=== PATIENT | female | born 1985 | race Caucasian/White ===

== ENCOUNTER 2018-10-26 21:48 | Emergency (ER) | payer SELFPAY, MEDICAID ==
[2018-10-27] MEDS: FAMOTIDINE 20 MG TAB PO (02:02)
[2018-10-27] MEDS: ONDANSETRON (ODT) 4 MG TAB ODT (02:02)
[2018-10-27 02:05] LABS: ADD MAN DIFF? NO
[2018-10-27 02:08] LABS: BASOPHILS % 0.2 % (0.0-2.0); EOSINOPHILS # 0.1 10^3/ul (0.0-0.5); EOSINOPHILS % 0.9 % (0.0-7.0); HEMATOCRIT 34.8 % (37.0-47.0); HEMOGLOBIN 11.5 g/dl (12.0-16.0); LYMPHOCYTES # 2.2 10^3/ul (0.8-2.9); LYMPHOCYTES % 22.8 % (15.0-51.0); MEAN CORPUSCULAR HEMOGLOBIN 29.2 pg (29.0-33.0); MEAN CORPUSCULAR VOLUME 88.3 fl (82.0-101.0); MEAN PLATELET VOLUME 11.4 fl (7.4-10.4); MONOCYTE # 0.6 10^3/ul (0.3-0.9); MONOCYTES % 6.2 % (0.0-11.0); NEUTROPHIL # 6.8 10^3/ul (1.6-7.5); NEUTROPHILS % 69.7 % (39.0-77.0); PLATELET COUNT 274 10^3/UL (140-415); RED BLOOD COUNT 3.94 10^6/ul (4.20-5.40); RED CELL DISTRIBUTION WIDTH 13.6 % (11.5-14.5)
[2018-10-27 02:08] LABS: WHITE BLOOD COUNT 9.8 10^3/ul (4.8-10.8)
[2018-10-27] MEDS: ONDANSETRON 4 MG INJ IM (02:20)
[2018-10-27 02:27] LABS: ALANINE AMINOTRANSFERASE 10 IU/L (13-69); ALBUMIN 3.9 g/dl (3.3-4.9); ALBUMIN/GLOBULIN RATIO 1.05; ALKALINE PHOSPHATASE 70 IU/L (42-121); ANION GAP 10 (5-13); ASPARTATE AMINO TRANSFERASE 19 IU/L (15-46); BILIRUBIN,INDIRECT 0.1 mg/dl (0-1.1); BILIRUBIN,TOTAL 0.1 mg/dl (0.2-1.3); BLOOD UREA NITROGEN 6 mg/dl (7-20); CALCIUM 9.4 mg/dl (8.4-10.2); CARBON DIOXIDE 24 mmol/L (21-31); CHLORIDE 106 mmol/L (97-110); Estimated GFR > 60 mL/min (>60); GLUCOSE 104 mg/dl (70-220); POTASSIUM 3.6 mmol/L (3.5-5.1); SODIUM 140 mmol/L (135-144); TOTAL PROTEIN 7.6 g/dl (6.1-8.1)
[2018-10-27 02:33] LABS: ADD UMIC YES; UR ASCORBIC ACID NEGATIVE (NEGATIVE); UR BACTERIA FEW /HPF (NONE SEEN); UR BILIRUBIN (Dip) NEGATIVE (NEGATIVE); UR BLOOD (Dip) NEGATIVE (NEGATIVE); UR CLARITY SLIGHTLY CLOUDY (CLEAR); UR COLOR YELLOW (YELLOW); UR GLUCOSE (Dip) NEGATIVE (NEGATIVE); UR KETONES (Dip) 1+ mg/dL (NEGATIVE); UR LEUKOCYTE ESTERASE (Dip) TRACE Leu/ul (NEGATIVE); UR MUCUS FEW /HPF (NONE SEEN); UR NITRITE (Dip) NEGATIVE (NEGATIVE); UR RBC 2 /HPF (0-5); UR SPECIFIC GRAVITY (Dip) 1.019 (1.003-1.030); UR SQUAMOUS EPITHELIAL CELL FEW /HPF (FEW); UR TOTAL PROTEIN (Dip) NEGATIVE (NEGATIVE); UR UROBILINOGEN (Dip) NEGATIVE (NEGATIVE); UR WBC 4 /HPF (0-5)
== END 2018-10-27 04:12 | disposition home or self-care (01) ==
LOC: FTE 21:48
DX: O99.612 Diseases of the digestive system complicating pregnancy, second trimester (principal); K80.50 Calculus of bile duct without cholangitis or cholecystitis without obstruction; O20.9 Hemorrhage in early pregnancy, unspecified; R10.2 Pelvic and perineal pain; Z3A.18 18 weeks gestation of pregnancy
CPT/HCPCS: 36415; 76705; 76805; 80053; 81001; 84702; 85025; 86900; 86901; 96372; 99285-25

== ENCOUNTER 2019-03-11 04:10 | Inpatient (IN) | payer MEDICAID ==
[2019-03-11] MEDS ORDERED: FENTAnyl 50 MCG/ML VIAL IV (05:00)
[2019-03-11] MEDS ORDERED: IBUPROFEN 600 MG TAB PO (05:00)
[2019-03-11] MEDS ORDERED: BUTORPHANOL 2 MG INJ IV (05:00)
[2019-03-11] MEDS ORDERED: METHYLERGONOVINE 0.2 MG INJ IM ×2 (05:00→16:30)
[2019-03-11] MEDS ORDERED: MISOPROSTOL 200 MCG TAB PR ×2 (05:00→16:30)
[2019-03-11] MEDS ORDERED: OXYTOCIN 30 UNITS/LR 500 ML IV ×2 (05:00→16:30)
[2019-03-11] MEDS ORDERED: OXYCODONE/ASPIRIN (4.88/325) TAB PO ×3 (05:00→16:30)
[2019-03-11] MEDS ORDERED: CARBOPROST 250 MCG INJ IM ×2 (05:00→16:30)
[2019-03-11] MEDS ORDERED: LIDOCAINE 1% (MPF) 30 ML INJ INJ (05:00)
[2019-03-11] MEDS: LACTATED RINGER'S 1,000 ML IV ×2 (05:19→06:01)
[2019-03-11] MEDS: AMPICILLIN 2 GM/NS (PMX) 100 ML IV (05:20)
[2019-03-11 05:26] LABS: ADD MAN DIFF? NO
[2019-03-11 05:44] LABS: WHITE BLOOD COUNT 7.3 10^3/ul (4.8-10.8)
[2019-03-11 05:44] LABS: BASOPHILS % 0.3 % (0.0-2.0); EOSINOPHILS # 0.1 10^3/ul (0.0-0.5); EOSINOPHILS % 0.8 % (0.0-7.0); HEMATOCRIT 29.3 % (37.0-47.0); LYMPHOCYTES # 1.9 10^3/ul (0.8-2.9); LYMPHOCYTES % 25.6 % (15.0-51.0); MEAN CORPUSCULAR HEMOGLOBIN 23.4 pg (29.0-33.0); MEAN CORPUSCULAR HGB CONC 30.7 g/dl (32.0-37.0); MEAN CORPUSCULAR VOLUME 76.3 fl (82.0-101.0); MEAN PLATELET VOLUME 12.2 fl (7.4-10.4); MONOCYTE # 0.6 10^3/ul (0.3-0.9); MONOCYTES % 8.3 % (0.0-11.0); NEUTROPHIL # 4.7 10^3/ul (1.6-7.5); NEUTROPHILS % 64.6 % (39.0-77.0); PLATELET COUNT 282 10^3/UL (140-415); RED BLOOD COUNT 3.84 10^6/ul (4.20-5.40); RED CELL DISTRIBUTION WIDTH 15.9 % (11.5-14.5)
[2019-03-11 05:56] LABS: INR 0.92; PROTIME 12.5 Sec (11.9-14.9)
[2019-03-11 05:57] LABS: PARTIAL THROMBOPLASTIN TIME 25.9 Sec (23.0-35.0)
[2019-03-11] MEDS ORDERED: FENTAnyl 2MCG/ML-ROPIV 0.2% 100 ML (06:08)
[2019-03-11] MEDS ORDERED: NALOXONE (0.4 MG/ML) INJ IV (06:30)
[2019-03-11 06:48] LABS: HEPATITIS B SURFACE ANTIGEN NEGATIVE (NEGATIVE)
[2019-03-11] MEDS: FENTAnyl 2MCG/ML-ROPIV 0.2% 100 ML BAG EPI (06:50)
[2019-03-11] MEDS ORDERED: ONDANSETRON 4 MG INJ (06:54)
[2019-03-11] MEDS: ONDANSETRON 4 MG INJ IV (06:58)
[2019-03-11] MEDS: DIPHENHYDRAMINE 50 MG INJ IV (08:54)
[2019-03-11] MEDS ORDERED: AMPICILLIN 1 GM/NS (PMX) 50 ML IV (09:00)
[2019-03-11] MEDS: OXYTOCIN 30 UNITS/LR 500 ML IV ×2 (13:12→13:25)
[2019-03-11] MEDS: MINERAL OIL LIGHT 10 ML VIAL TOP (15:15)
[2019-03-11 16:09] LABS: RAPID PLASMA REAGIN NONREACTIVE (NR)
[2019-03-11] MEDS ORDERED: ZOLPIDEM 5 MG TAB PO (16:30)
[2019-03-11] MEDS ORDERED: NAPROXEN 500 MG TAB PO (16:30)
[2019-03-11] MEDS: IBUPROFEN 600 MG TAB PO ×2 (17:30→23:14)
[2019-03-11] MEDS: LANOLIN HPA 1 PKT TOP ×2 (17:30→23:14)
[2019-03-11] MEDS: BENZOCAINE 20% 56 ML SPRAY TOP (17:30)
[2019-03-11] MEDS: WITCH HAZEL/GLYCERIN PAD PR (17:31)
[2019-03-11] MEDS: SENNA/DOCUSATE NA (8.6MG/50MG) TAB PO (21:00)
[2019-03-11] MEDS: FAMOTIDINE 20 MG TAB PO (23:13)
[2019-03-12] MEDS: IBUPROFEN 600 MG TAB PO ×3 (05:31→18:02)
[2019-03-12 06:48] LABS: ADD MAN DIFF? NO
[2019-03-12 06:52] LABS: BASOPHILS % 0.3 % (0.0-2.0); EOSINOPHILS # 0.1 10^3/ul (0.0-0.5); EOSINOPHILS % 0.7 % (0.0-7.0); LYMPHOCYTES # 2.3 10^3/ul (0.8-2.9); LYMPHOCYTES % 26.8 % (15.0-51.0); MEAN CORPUSCULAR HEMOGLOBIN 23.6 pg (29.0-33.0); MEAN CORPUSCULAR HGB CONC 30.8 g/dl (32.0-37.0); MEAN CORPUSCULAR VOLUME 76.7 fl (82.0-101.0); MEAN PLATELET VOLUME 12.3 fl (7.4-10.4); MONOCYTE # 0.7 10^3/ul (0.3-0.9); MONOCYTES % 8.1 % (0.0-11.0); NEUTROPHIL # 5.5 10^3/ul (1.6-7.5); NEUTROPHILS % 63.6 % (39.0-77.0); PLATELET COUNT 248 10^3/UL (140-415); RED BLOOD COUNT 3.39 10^6/ul (4.20-5.40); RED CELL DISTRIBUTION WIDTH 16.1 % (11.5-14.5)
[2019-03-12 06:52] LABS: WHITE BLOOD COUNT 8.6 10^3/ul (4.8-10.8)
[2019-03-12] MEDS: FAMOTIDINE 20 MG TAB PO ×2 (09:41→21:38)
[2019-03-12] MEDS: SENNA/DOCUSATE NA (8.6MG/50MG) TAB PO ×2 (09:41→21:38)
[2019-03-13] MEDS: LANOLIN HPA 1 PKT TOP (03:42)
[2019-03-13] MEDS: IBUPROFEN 600 MG TAB PO ×3 (06:00→12:46)
[2019-03-13] MEDS: DIPHTH/TET/ACEL PERTUSS (ADULT) 0.5 ML VIAL IM* (09:00)
[2019-03-13] MEDS: FAMOTIDINE 20 MG TAB PO (09:00)
[2019-03-13] MEDS: SENNA/DOCUSATE NA (8.6MG/50MG) TAB PO (09:55)
== END 2019-03-13 16:30 | disposition home or self-care (01) | DRG 807 ==
LOC: OBT 04:10 → L-D 04:10 → OBT 04:48 → L-D 04:48 → PP1 15:06
PROVIDERS: Obstetrics & Gynecology
PROC: 10E0XZZ Delivery of Products of Conception, External Approach (ICD-10-PCS; principal; 2019-03-11)
PROC: 0HQ9XZZ Repair Perineum Skin, External Approach (ICD-10-PCS; 2019-03-11)
DX: O70.9 Perineal laceration during delivery, unspecified (principal); Z37.0 Single live birth; O69.81X0 Labor and delivery complicated by cord around neck, without compression, not applicable or unspecified; Z3A.37 37 weeks gestation of pregnancy
CPT/HCPCS: 36415; 62322; 76815; 85025; 85610; 85730; 86592; 86850; 86900; 86901; 87340